=== PATIENT | female | born 2000 | race Caucasian/White ===

== ENCOUNTER 2025-01-11 19:50 | Emergency (ER) | payer BC, SELFPAY ==
[2025-01-11] VITALS (13 sets, daily range): BP systolic 128–171; BP diastolic 71–99; PULSE 83–122; RESP 14–23; TEMP 36.7; O2SAT 97–100; BMI 22.3
[2025-01-11 21:25] LABS: Influenza A - CEPHEID Flu A NEGATIVE (NEGATIVE); Influenza B - CEPHEID Flu B NEGATIVE (NEGATIVE)
[2025-01-11 21:27] LABS: COVID-19 CEPHEID 4-PLEX PCR Negative (Negative)
[2025-01-11] MEDS: SODIUM CHLORIDE 0.9% 1,000 ML 1000 ML IV (22:18)
--- NOTE | 2025-01-11 22:33 | ED.GENADULT ---
HPI - General Adult General Chief complaint: Dizziness Stated complaint: weakness , light headed pcp sent Time Seen by Provider: 01/11/25 21:56 Source: patient Mode of arrival: Ambulatory History of Present Illness HPI narrative: 24-year-old female with generalized muscle aches, sore throat, upper back discomfort, felt dizzy. Denied headache. Denied chest pain shortness of breath. No loss of consciousness. No trauma or injuries. [place] like she might pass out. She had been taking cold and flu medications for the last 2 days. Denied loose stools diarrhea. No black or red stools. Some nausea no vomiting. No photophobia or neck pain. No focal weakness to face arm or leg. No focal numbness to face arm or leg. Related Data Allergies Allergy/AdvReac Type Severity Reaction Status Date / Time peanuts Allergy Unknown Uncoded 01/11/25 20:07 tree nuts Allergy Unknown Uncoded 01/11/25 20:07 Patient History Social History Smoking Status: Never smoker Smoking Status: Never smoker Exam Narrative Exam Narrative: GENERAL: Well-developed patient, in mild distress. HEAD: Atraumatic. Normocephalic. EYES: Pupils equal round and reactive. Extraocular motions intact. No scleral icterus. No injection or drainage. ENT: Nose without bleeding, purulent drainage. Throat without erythema, tonsillar hypertrophy or exudate. Airway patent. NECK: Trachea midline. Non tender CARDIOVASCULAR: Regular rate and rhythm without murmurs, gallops, or rubs. RESPIRATORY: Clear to auscultation. Breath sounds equal bilaterally. No wheezes, rales, or rhonchi. GASTROINTESTINAL: Abdomen soft, non-tender, nondistended. EXTREMITIES: No edema or joint tenderness. BACK: Nontender without deformity or crepitance. No flank tenderness. NEURO: AOx3. Motor functions grossly nonfocal. SKIN: No rash or erythema of visible areas Initial Vital Signs Initial Vital Signs: Vital Signs Pulse Rate 104 H 01/11/25 20:02 Blood Pressure 162/98 H 01/11/25 20:02 Pulse Oximetry 98 01/11/25 20:02 Course Orders Ordered: ED Orders 01/11/25 22:25 CBC Auto Diff [Complete Blood Count AUTO DIFF] Stat CMP [Comprehensive Metabolic Panel] Stat HCG Quantitative /Beta subunit Stat Lactate (Lactic Acid) Stat Procalcitonin Stat Urinalysis and Microscopic Stat Urine Drug Screen, Rapid Stat 01/11/25 22:35 XR chest 1V Stat Discontinued Medications Sodium Chloride (Normal Saline 0.9%) 1,000 mls @ 1,000 mls/hr IV BOLUS ONE Stop: 01/11/25 22:55 Last Infusion: 01/11/25 22:52 Dose: Infused Documented By: Admin: 01/11/25 22:18 Dose: 1,000 mls/hr Documented By: DWAYNE Lactated Ringer's (Lactated Ringers) 1,000 mls @ 1,000 mls/hr IV BOLUS ONE Stop: 01/11/25 23:33 Last Admin: 01/11/25 22:52 Dose: Not Given Documented By: DWAYNE Vital Signs Vital signs: Vital Signs - 8 hr 01/11/25 22:00 01/11/25 22:00 01/11/25 22:28 Pulse Rate 91 H 102 H Respiratory Rate 23 15 Blood Pressure 128/72 Pulse Oximetry 99 97 Oxygen Delivery Method 01/11/25 22:28 01/11/25 22:30 01/11/25 22:30 Pulse Rate 91 H Respiratory Rate 14 Blood Pressure 138/71 137/79 Pulse Oximetry 98 Oxygen Delivery Method Room Air 01/11/25 23:00 01/11/25 23:00 Pulse Rate 98 H Respiratory Rate 16 Blood Pressure 142/72 H Pulse Oximetry 97 Oxygen Delivery Method Room Air Medical Decision Making Lab Data Lab results reviewed: Yes I reviewed the patient's lab results. Lab results narrative: White blood cell count 8000, hemoglobin 14.8, platelets adequate. Glucose 103. Normal renal function, serum CO2, electrolytes. Liver functions normal. Serum hCG negative. Urinalysis negative. COVID, flu, RSV negative. 01/11/25 22:25 01/11/25 22:25 Labs: Lab Results 01/11/25 01/11/25 01/11/25 Range/Units 20:30 22:25 22:25 WBC 8.0 (4.5-11.0) X10^3/uL RBC 5.11 (4.0-5.2) X10^6/uL Hgb 14.8 (12.0-16.0) g/dL Hct 43.1 (36-46) % MCV 84.4 (80-100) fL MCH 28.9 (26-34) PG MCHC 34.2 (30-36) % RDW 12.7 (11.6-14.8) % Plt Count 226 (150-400) X10^3/uL Neut % (Auto) 65.0 (50-75) % Lymph % (Auto) 26.3 (25-40) % [place] % (Auto) 7.2 (3-14) % Eos % (Auto) 1.1 L (2-4) % Baso % (Auto) 0.4 (0-2) % Neut # (Auto) 5200 (0259-1992) /uL Lymph # (Auto) 2100 (1491-5245) /uL [place] # (Auto) 600 (0-900) /uL Eos # (Auto) 100 (0-450) /uL Baso # (Auto) 0 (0-100) /uL Sodium 138 (137-145) mmol/L Potassium 4.1 (3.4-5.1) mmol/L Chloride 105 (98-107) mmol/L Carbon Dioxide 23 (22-32) mmol/L BUN 14 (7-17) mg/dL Creatinine 0.60 (0.52-1.04) mg/dL Estimated GFR > 60 (>60) mL/min BUN/Creatinine Ratio 23.3 H (6-22) Glucose 103 H (70-99) mg/dL Lactate 0.7 (0.7-2.1) mmol/L Calcium 9.5 (8.4-10.2) mg/dL Total Bilirubin 0.2 (0.2-1.3) mg/dL AST 26 (14-36) IU/L ALT 19 (<35) IU/L Alkaline Phosphatase 85 (38-126) U/L Total Protein 8.8 H (6.3-8.2) g/dL Albumin 4.8 (3.5-5.0) g/dL Globulin 4.0 (1.7-4.1) g/dL Albumin/Globulin Ratio 1.2 (1.0-2.8) Procalcitonin < 0.030 (<0.5) ng/mL HCG, Quant < 2.39 mIU/mL Urine Color Yellow Urine Appearance Clear Urine pH 6.0 Normal (4.5-8.0) Ur Specific [place] 1.015 (1.000-1.035) Urine Protein Negative (Negative) Urine Glucose (UA) Negative (Negative) g/dL Urine Ketones Negative (NEGATIVE) Urine Occult Blood Negative (Negative) Urine Nitrate Negative (Negative) Urine Bilirubin Negative (NEGATIVE) Urine Urobilinogen 0.2 (0.2) E.U./dL Ur Leukocyte Esterase Negative (NEGATIVE) Urine RBC 0-1/hpf (0-5/HPF) Urine WBC 0-1/hpf (0-5/HPF) Ur Squamous Epith Cells 0-1 /hpf (0-5/HPF) Calcium Oxalate Crystal Occasional H Urine Bacteria Few (2-10) H (None) Urine Mucus 1+ H (Negative) Ur Culture Indicated? Cult not indicated Vol Urine Centrifuged 10ml (spun) U Opiates 300ng/mL cut Negative (Negative) Ur Oxycodone Screen Negative (Negative) Urine Methadone Screen Negative (Negative) Ur Barbiturates Screen Negative (Negative) U Tricyclic Antidepress Negative (Negative) Ur Phencyclidine Scrn Negative (Negative) Ur Amphetamines Screen Positive H (Negative) U Methamphetamines Scrn Negative (Negative) Ur MDMA Scrn (Ecstasy) Negative (Negative) U Benzodiazepines Scrn Negative (Negative) Urine Cocaine Screen Negative (Negative) U Marijuana (THC) Screen Negative (Negative) Urine Specific [place] Normal (Normal) Ur Creatinine Normal (Normal) SARS-CoV-2 (PCR) Negative (Negative) Influenza A (RT-PCR) Flu a negative (NEGATIVE) Influenza B (RT-PCR) Flu b negative (NEGATIVE) RSV (PCR) Negative (Negative) Imaging Data Chest x-ray: Radiologist's Impression: [address] [address] XRay Report Signed Patient: Lakeshia Elliott MR#: [id number] : 2000 Acct:[id number] Age/Sex: 24 / F Date of Service: 01/11/25 Loc: ED Accession Number: [id number] Procedure: XR chest 1V Ordering Provider: Kushal Slater MD PROCEDURE: XR CHEST 1V INDICATIONS: cough, dizzy TECHNIQUE: One view of the chest was acquired. COMPARISON: None. FINDINGS: Surgical changes and devices: None. Lungs and pleura: Lungs are clear. No pleural effusions or pneumothorax. Mediastinum: Mediastinal contours appear normal. Heart size is normal. Bones and chest wall: No suspicious bony lesions. Overlying soft tissues appear unremarkable. IMPRESSION: No acute cardiopulmonary pathology. Dictated by: Jose Swann M.D. on 01/11/2025 at 23:03 Approved by: Jose Swann M.D. on 01/11/2025 at 23:03 [facility] Narrative Medical decision making narrative: Sore throat, upper back discomfort, not really coughing, feeling achy. Lightheadedness. Afebrile, sirs screen negative. Lab data: White blood cell count 8000, hemoglobin 14.8, platelets adequate. Glucose 103. Normal renal function, serum CO2, electrolytes. Liver functions normal. Serum hCG negative. Urinalysis negative. COVID, flu, RSV negative. [place] better after IV fluid bolus. Improved symptoms, likely viral syndrome. Discharged home with family. Encouraged use of [id number] Motrin and/or Tylenol. Return precautions discussed. Discharge Plan Departure Patient Disposition: Home Clinical Impression: Light headedness, Head cold Activity Restrictions/Additional Instructions: Lightheadedness and weakness and dizziness, had cold symptoms, taking cold and flu medications. No fever on triage. No photophobia, maybe neck well, reassuring lung exam, no respiratory distress, normal oxygenation on room air. IV fluids given, symptoms improved. Electrolytes normal, labs reassuring. COVID and influenza swabs negative. Chest x-ray without pneumonia infiltrate changes. Further management for now as an outpatient. Encouraged oral hydration. Take Tylenol and or Motrin as needed for muscle aches or feverishness. You did not seem to have meningitis like symptoms, spinal tap and advanced imaging of the brain or other parts of the body not indicated at this time. Recheck symptoms with your regular doctor if not improved in the next couple of days. Return to this/nearest emergency department for any change worsening symptoms or any concerns prior. Stand Alone Forms: Patient Portal/API
[2025-01-11 22:38] LABS: Appearance Urine UA CLEAR; Bilirubin Urine UA NEGATIVE (NEGATIVE); Color Urine UA YELLOW; Glucose Urine UA NEGATIVE (Negative); Ketones Urine UA NEGATIVE (NEGATIVE); Leukocyte Esterase Urine UA NEGATIVE (NEGATIVE); Nitrite Urine UA NEGATIVE (Negative); Occult Blood Urine UA NEGATIVE (Negative); Protein Urine UA NEGATIVE (Negative); Specific Gravity Urine UA 1.015 (1.000-1.035); Urobilinogen Urine UA 0.2 E.U./dL (0.2)
[2025-01-11 22:40] LABS: UR Morphine/Opiate cutoff 300 Negative (Negative); Ur Specific Gravity Normal (Normal); Urine MDMA Negative (Negative); Urine Methamphetamines Negative (Negative); Urine Tetrahydrocannabinol Negative (Negative); pH Urine UA 6.0 (4.5-8.0)
[2025-01-11 22:41] LABS: Urine Tricyclic Antidepressant Negative (Negative)
[2025-01-11 22:46] LABS: Culture Indicated Urine Cult Not Indicated
[2025-01-11 22:49] LABS: Alanine Aminotransferase 19 IU/L (<35); Albumin 4.8 g/dL (3.5-5.0); Albumin Globulin Ratio 1.2 (1.0-2.8); Alkaline Phosphatase 85 U/L (38-126); Blood Urea Nitrogen 14 mg/dL (7-17); Calcium 9.5 mg/dL (8.4-10.2); Carbon Dioxide 23 mmol/L (22-32); Chloride 105 mmol/L (98-107); Estimated Glomerular Filt Rate > 60 mL/min (>60); Globulin 4.0 g/dL (1.7-4.1); Glucose 103 mg/dL (70-99); HEMOLYSIS < 15 (0-50); Lactate (Lactic Acid) 0.7 mmol/L (0.7-2.1); Potassium 4.1 mmol/L (3.4-5.1); Sodium 138 mmol/L (137-145); Total Protein 8.8 g/dL (6.3-8.2)
[2025-01-11 23:06] LABS: HCG Quantitative /Beta subunit < 2.39 mIU/mL; Procalcitonin < 0.030 ng/mL (<0.5)
[2025-01-11 23:25] LABS: Add Manual Diff / Slide Review NO; Hematocrit 43.1 % (36-46); Hemoglobin 14.8 g/dL (12.0-16.0); Lymphocytes Absolute Auto 2100 /uL (1100-4500); Mean Corpuscular HGB Conc 34.2 % (30-36); Mean Corpuscular Hemoglobin 28.9 PG (26-34); Mean Corpuscular Volume 84.4 fL (80-100); Platelet Count 226 X10^3/uL (150-400)
== END 2025-01-11 23:33 | disposition home or self-care (01) ==
PROVIDERS: Emergency Provider Emergency Medicine
DX: J00 Acute nasopharyngitis [common cold] (principal); R42 Dizziness and giddiness
CPT/HCPCS: 71045; 80053; 80305; 81001; 83605; 84145; 84702; 85025; 87637; 99283; 99284